=== PATIENT | female | born 1970 | race African-American/Black ===

== ENCOUNTER 2018-04-10 09:21 | Inpatient (IN) | payer MEDICAID, OTHER ==
[~2018-04-10] VITALS: Ht 162.6 cm; Wt 94.2 kg
[2018-04-10] MEDS ORDERED: SODIUM CHLORIDE 0.9% 1,000 ML IV ONE (09:57)
[2018-04-10] MEDS ORDERED: IPRATROPIUM BROM 0.5 MG/2.5ML INH SOL NEB ONE ×2 (10:00→15:30)
[2018-04-10] MEDS ORDERED: NALBUPHINE HCL 10 MG/1ml INJECTION IV ONE (10:00)
[2018-04-10] MEDS: methylPREDNISolone SOD SUCC 125 MG/2 ML VL IV ONE ×2 (10:00→11:21)
[2018-04-10] MEDS ORDERED: ONDANSETRON HCL 4 MG/2 ML VIAL IV ONE (10:00)
[2018-04-10] MEDS ORDERED: ALBUTEROL SULF 2.5 MG/0.5ML(0.5%) NEB SOLN NEB ONE ×2 (10:00→15:30)
[2018-04-10 10:47] LABS: Basophils # (auto) 0.1 uL; Basophils % (auto) 1.1 % (0.0-2.0); Eosinophils # (auto) 0.4 uL; Eosinophils % (auto) 6.7 % (0.0-7.0); Hematocrit 40.1 % (36.0-46.0); Hemoglobin 13.1 g/dL (12.2-16.2); Lymphocytes # (auto) 1.5 uL; Lymphocytes % (auto) 22.4 % (10.0-50.0); Mean Corpuscular Hemoglobin 28.3 pg (28.0-32.0); Mean Corpuscular Hgb Conc. 32.6 g/dL (32.0-36.0); Monocytes # (auto) 0.6 uL; Monocytes % (auto) 8.8 % (0.0-12.0); Platelet Count (auto) 197 10^3/uL (140-450); Red Blood Cells 4.61 10^6/uL (4.0-5.20); White Blood Cell 6.6 10^3/uL (4.4-10.8)
[2018-04-10 11:04] LABS: Alanine Aminotransferase 20 U/L (13-56); Anion Gap 7 (5-15); Aspartate Aminotransferase 18 U/L (15-37); BUN/Creatinine Ratio 14.3; Blood Urea Nitrogen 13 mg/dL (7-18); Calcium 8.3 mg/dL (8.5-10.1); Carbon Dioxide 24 mmol/L (21-32); Chloride 112 mmol/L (98-107); GFR African American 85 mL/min; GFR Non-African American 70 mL/min; Glucose 83 mg/dL (74-106); Sodium 143 mmol/L (136-145)
[2018-04-10 11:09] LABS: Alkaline Phosphatase 75 U/L (45-117); Bilirubin, Total 0.4 mg/dL (0.2-1.0); Total Protein 6.6 g/dL (6.4-8.2)
[2018-04-10 11:10] LABS: Urine Bacteria FEW /hpf (None Seen); Urine Blood Negative /uL (Negative); Urine Specific Gravity 1.013 (1.001-1.035); Urine WBC 2 /hpf (0 - 5)
[2018-04-10] MEDS ORDERED: NITROGLYCERIN 0.4 MG SL TAB SL PRN (17:00)
[2018-04-10] MEDS ORDERED: cefTRIAXone 1GM/10ml IVPUSH 10 ML IV ONE (17:00)
[2018-04-10] MEDS ORDERED: MORPHINE SULF INJ 2 MG/ML SYRINGE 1ML IV PRN (17:00)
[2018-04-10] MEDS: ALBUTEROL SULF 2.5 MG/0.5ML(0.5%) NEB SOLN NEB PRN ×2 (18:26→22:50)
[2018-04-10] MEDS: IPRATROPIUM BROM 0.5 MG/2.5ML INH SOL NEB SCH ×2 (18:26→22:51)
[2018-04-10 19:48] VITALS: BP 153/65
[2018-04-10] MEDS ORDERED: LISI40TA PO (21:13)
[2018-04-10] MEDS ORDERED: SIMV-8 PO (21:13)
[2018-04-10 21:14] VITALS: BP 146/89
[2018-04-10] MEDS: methylPREDNISolone SOD SUCC 125 MG/2 ML VL IV SCH (21:54)
[2018-04-10 22:00] VITALS: BP 128/79
[2018-04-10] MEDS: HYDROcodone-ACET 7.5/325MG TAB PO PRN (23:43)
[2018-04-11] MEDS: ALBUTEROL SULF 2.5 MG/0.5ML(0.5%) NEB SOLN NEB PRN (02:38)
[2018-04-11] MEDS: IPRATROPIUM BROM 0.5 MG/2.5ML INH SOL NEB SCH ×4 (02:38→18:14)
[2018-04-11 05:00] VITALS: BP 153/100
[2018-04-11] MEDS: HYDROcodone-ACET 7.5/325MG TAB PO PRN ×3 (06:04→20:53)
[2018-04-11 09:00] VITALS: BP 134/69
[2018-04-11] MEDS: cefTRIAXone 1GM/10ml IVPUSH 10 ML IV SCH (09:03)
[2018-04-11] MEDS: methylPREDNISolone SOD SUCC 125 MG/2 ML VL IV SCH (09:03)
[2018-04-11] MEDS ORDERED: FUROSEMIDE 40 MG/4 ML VIAL IV ONE (09:45)
[2018-04-11] MEDS ORDERED: AZITHROMYCIN 250 MG TAB PO ONE (09:45)
[2018-04-11] MEDS ORDERED: POTASSIUM CHL 20 Meq TABLET PO ONE (09:45)
[2018-04-11] MEDS ORDERED: LISINOPRIL 20 MG TAB PO ONE (09:45)
[2018-04-11] MEDS: POTASSIUM CHL 20 Meq TABLET PO SCH (10:00)
[2018-04-11] MEDS ORDERED: FUROSEMIDE 40 MG/4 ML VIAL IV SCH (10:00)
[2018-04-11] MEDS ORDERED: AZITHROMYCIN 250 MG TAB PO SCH (10:00)
[2018-04-11] MEDS: LISINOPRIL 20 MG TAB PO SCH (10:00)
[2018-04-11] MEDS: ALBUTEROL SULF 2.5 MG/0.5ML(0.5%) NEB SOLN NEB SCH ×2 (10:50→18:14)
[2018-04-11 13:00] VITALS: BP 108/75
[2018-04-11 17:00] VITALS: BP 139/102
[2018-04-11 22:00] VITALS: BP 126/71
[2018-04-11] MEDS ORDERED: ATORVASTATIN 20 MG TAB PO SCH (22:00)
[2018-04-12] MEDS: HYDROcodone-ACET 7.5/325MG TAB PO PRN ×2 (03:02→09:40)
[2018-04-12 05:00] VITALS: BP 133/98
[2018-04-12] MEDS: ALBUTEROL SULF 2.5 MG/0.5ML(0.5%) NEB SOLN NEB SCH ×3 (06:03→14:38)
[2018-04-12] MEDS: IPRATROPIUM BROM 0.5 MG/2.5ML INH SOL NEB SCH ×3 (06:03→14:38)
[2018-04-12 06:28] LABS: BUN/Creatinine Ratio 21.2; Calcium 8.9 mg/dL (8.5-10.1)
[2018-04-12 09:00] VITALS: BP 150/99
[2018-04-12] MEDS: cefTRIAXone 1GM/10ml IVPUSH 10 ML IV SCH (09:39)
[2018-04-12] MEDS: LISINOPRIL 20 MG TAB PO SCH (09:41)
[2018-04-12] MEDS: POTASSIUM CHL 20 Meq TABLET PO SCH (09:48)
[2018-04-12] MEDS ORDERED: FUROSEMIDE 40 MG/4 ML VIAL IV SCH (10:00)
[2018-04-12] MEDS ORDERED: AZITHROMYCIN 250 MG TAB PO SCH (10:00)
[2018-04-12 12:07] VITALS: BP 150/99
[2018-04-12 13:00] VITALS: BP 109/67
== END 2018-04-12 13:34 | disposition home or self-care (01) | DRG 139 ==
LOC: ER 09:24 → OVERFLOW 09:25 → CENTRAL 20:58
PROVIDERS: ADMIT Family Medicine; ATTEND Internal Medicine
DX: J18.9 Pneumonia, unspecified organism (principal); I50.43 Acute on chronic combined systolic (congestive) and diastolic (congestive) heart failure; J44.0 Chronic obstructive pulmonary disease with (acute) lower respiratory infection; E66.01 Morbid (severe) obesity due to excess calories; I11.0 Hypertensive heart disease with heart failure; J44.1 Chronic obstructive pulmonary disease with (acute) exacerbation; R06.03 Acute respiratory distress; F14.10 Cocaine abuse, uncomplicated; F17.210 Nicotine dependence, cigarettes, uncomplicated; F12.90 Cannabis use, unspecified, uncomplicated; E78.5 Hyperlipidemia, unspecified; Z87.01 Personal history of pneumonia (recurrent); Z68.35 Body mass index [BMI] 35.0-35.9, adult; Z71.6 Tobacco abuse counseling
CPT/HCPCS: 36415; 71046; 80048; 80053; 81001; 83735; 83880; 84443; 84484; 85025; 93005; 93306; 94640; 94761; 96361; 96374; 96375; J0696; J2405